=== PATIENT | female | born 1940 | race Caucasian/White ===

== ENCOUNTER 2016-12-06 14:17 | Emergency (ER) | payer MEDICARE, OTHER ==
[~2016-12-06] VITALS: Ht 162.6 cm; Wt 63.2 kg
[2016-12-06 14:22] VITALS: BP 159/89; PULSE 89; RESP 20; O2SAT 97
[2016-12-06 14:25] VITALS: BP 178/68; PULSE 83; RESP 13; O2SAT 99
[2016-12-06 14:46] LABS: BASOPHILS % (AUTO) 0.2 % (0-3); EOSINOPHILS % (AUTO) 2.8 % (0-5); MONOCYTES % (AUTO) 9.6 % (4-12); Mean Corpuscular Hemoglobin 31.6 pg (27.0-35.0); Mean Corpuscular Volume 93.1 fL (81-100); NEUTROPHILS % (AUTO) 52.2 % (40-74); Platelet Count 244 bil/L (150-400)
--- NOTE | 2016-12-06 14:48 | ED.REPORT ---
HPI-Chest Pain 40 and Over Date of Service Dec 06, 2016 ED Provider: Wilian Camacho MD This is a 76 year old female with a history of hypothyroidism, hyperlipidemia, asthma, migraines, and hiatal hernia presenting to the ED complaining of chest pressure that began 3 days ago. Described as chest pressure across the chest that is exacerbated by deep inspiration which causes radiation to back. Reports a, "dull, heavy ache." Associated with no SOB. Denies LE swelling, fever, chills, nausea, vomiting, diarrhea, abdominal pain, constipation, dizziness, lightheadedness, nausea, or diaphoresis. Denies prolonged periods of inactivity recently or recent surgeries. Pt adds that she had US extremity 1 week ago for ankle swelling which was negative. Pain worse with bending and twisting. Nursing Notes Stated Complaint: OUT OF BREATH, CHEST PRESSURE Chief Complaint: Chest Pain Nursing Notes Reviewed: Yes Allergies: Coded Allergies: No Known Allergies (Verified Allergy, Unknown, 11/03/15) General Time Seen by MD: 14:37 Chief Complaint Chest pressure Hx Obtained From: Patient Arrived By: Walk-in Sudden in Onset?: Yes Onset Occurred: 3 days ago Symptom Duration: Since onset Severity: Current: Mild Pertinent Negative: Pt denies other symptoms Recent Healthcare: No recent doctor visit, No recent hospitalization Similar Sx Previous: No Past Medical History Past Medical History 1. Hiatal Hernia 2. Asthma- uses Albuterol 3. Hypothyroidism 4. Hyperlipidemia 5. Migraines 6. RBBB Past Surgical History Reports: Tonsillectomy Family History noncontributory Smoking History Never Smoker Social History Alcohol Use: Denies alcohol use Drug Use: Denies drug use Ambulatory Status Independent Review of Systems Constitutional: Denies: Chills, Fever Complete sys rev & neg: except as marked. Physical Exam Initial Vital Signs Vital Signs (First) Date Time Temp Pulse Resp B/P Pulse Ox O2 Delivery O2 Flow Rate FiO2 12/06/16 14:22 36.2 89 20 159/89 97 Room Air Initial VS: Reviewed Head / Eyes: Atraumatic, Normocephalic, PERRL ENT: Mucous membranes moist, Conjunctiva normal, No scleral icterus Neck: Supple, Non-tender, Full range of motion Extremities: Vascular intact, Neuro intact, No swelling, No tenderness Skin: Warm, Dry, No cyanosis Neurologic: Alert, Oriented, Nonfocal Psychiatric: Mood/affect normal, Behavior normal, Normal thought content General/Constitutional: Awake, Alert Respiratory / Chest: Breath sounds NL, Breath sounds = bilat, No respiratory distress, No rales, No rhonchi, No wheezing, No stridor, No chest tenderness Mild chest wall tenderness Cardiovascular: Regular rhythm, Heart sounds NL, No gallop, No murmurs, No rubs , Peripheral circulation NL Abdomen: Soft, Non-tender, McBurney's non-tender, No guarding, No rebound, BS normoactive, No distention, No hernia, No palpable mass Interpretation & Diagnostics Lab Results Interpretation Result Diagram: 12/06/16 1435 12/06/16 1435 Test 12/06/16 14:35 White Blood Count 9.2th/mm3 (3.8-10.1) Red Blood Count 4.65mil/mm3 (3.90-5.20) Hemoglobin 14.7g/dL (12.0-15.6) Hematocrit 43.3% (35.0-46.0) Mean Corpuscular Volume 93.1fL (81-100) Mean Corpuscular Hemoglobin 31.6pg (27.0-35.0) Mean Corpuscular Hemoglobin Concent 33.9% (32.0-37.0) Red Cell Distribution Width 13.3% (12.3-15.4) Platelet Count 244bil/L (150-400) Neutrophils (%) (Auto) 52.2% (40-74) Lymphocytes (%) (Auto) 34.9% (14-46) Monocytes (%) (Auto) 9.6% (4-12) Eosinophils (%) (Auto) 2.8% (0-5) Basophils (%) (Auto) 0.2% (0-3) Sodium Level 140mEq/L (134-144) Potassium Level 4.0mEq/L (3.5-5.2) Chloride Level 100mEq/L (97-108) Carbon Dioxide Level 24mmol/L (18-29) Blood Urea Nitrogen 14mg/dL (8-27) Creatinine 0.64mg/dL (0.57-1.00) Estimat Glomerular Filtration Rate 129mL/min (>59) Glucose Level 106mg/dL (60-99) Calcium Level 9.6mg/dL (8.5-10.1) Magnesium Level 2.0mg/dL (1.6-2.6) Total Bilirubin 0.6mg/dL (0.0-1.2) Aspartate Amino Transf (AST/SGOT) 22U/L (0-50) Alanine Aminotransferase (ALT/SGPT) 28U/L (0-32) Alkaline Phosphatase 80U/L (25-165) Troponin T < 0.010ug/L (0.0-0.011) Total Protein 7.6g/dL (6.4-8.4) Albumin 4.6g/dL (3.4-5.0) Hold Jett Top Tube Received (Received) ECG Interpretation ECG Interpretation: NSR at a rate of 79 at [address] segment elevation No t-wave abnormalities Time: 14:51 X-Ray Chest Interpretation Chest Xray Interpretation: IMPRESSION: No acute cardiopulmonary disease process. Dictated by: Geno Quinones MD, PhD on 12/06/2016 at 15:01 Approved by: Geno Quinones MD, PhD on 12/06/2016 at 15:02 Re-Eval/Medical Decision Med Decision/Clinical Course This is a 76 year old female with a history of hypothyroidism, hyperlipidemia, asthma, migraines, and hiatal hernia presenting to the ED complaining of chest pressure that began 3 days ago. Described as chest pressure across the chest that is exacerbated by deep inspiration which causes radiation to back. Reports a, "dull, heavy ache." Associated with no SOB. Denies LE swelling, fever, chills, nausea, vomiting, diarrhea, abdominal pain, constipation, dizziness, lightheadedness, nausea, or diaphoresis. Denies prolonged periods of inactivity recently or recent surgeries. Pt adds that she had US extremity 1 week ago for ankle swelling which was negative. Pain worse with bending and twisting. Upon arrival patient is afebrile with stable vital signs and examination as above. She has oxygen saturation 100% on room air and is without tachypnea. CXR: Obtained, reviewed and interpreted by myself shows no evidence of acute infiltrates, effusions or pneumothorax. Cardiac and mediastinal silhouette normal. No bony or soft tissue abnormalities. EKG was obtained and reviewed by myself as documented above. CBC CMP unremarkable troponin negative Overall presentation most consistent with musculoskeletal etiology. Initial screening troponin and EKG are reassuring against acute coronary syndrome. Moreover, the nature of her presentation is not classically suggestive of acute coronary syndrome. I did consider pulmonary embolism however on her examination today there is no lateralizing Swelling or tenderness suggestive of DVT and she is previously ruled out for DVT on duplex ultrasonography. She is without tachypnea, tachycardia or any major pulmonary embolus risk factors. I do not feel that workup for pulmonary embolism is clinically indicated at this time. Chest x-ray demonstrates no pneumonia or pneumothorax. Discussed findings and workup thus far. Patient feels reassured. Explained that we cannot definitively rule out acute coronary syndrome without admission and serial troponins however patient does not desire further workup at this time and wishes to be discharged home. The patient is making an informed decision. She was discharged home in stable condition. Follow-up and return precautions were reviewed in detail and she will follow up with her primary care physician in the coming week. Counseled Regarding: Diagnosis, Lab results, Need for follow-up, When/why to return to ED Discharge & Departure Primary Impression: Chest pressure Additional Impression: Musculoskeletal chest pain Disposition: Home Discharge Condition All VS Reviewed: Yes Condition: Stable Patient Instructions: Chest Pain (ED) Additional Instructions: Thank you for seeking care at emergency room. It is difficult for us to make definitive diagnoses in the ED but we believe that you are experiencing non-cardiac chest pressure Our primary goal today in the ED was to evaluate you for any life-threatening conditions. Your evaluation was reassuring. You should follow-up with your primary doctor in the next week. You should return to the ED immediately if you develop fevers, vomiting, cough, shortness of breath, chest pain, lightheadedness, weakness or any other concerning signs or symptoms. Thank you for letting us partake in your care today. Referrals: Christiane Abdul MD (PCP) Scribe Attestation Portions of this note were transcribed by Yajaira Dunham. I, Dr. Camacho personally performed the history, physical exam and medical decision-making; I reviewed and confirmed the accuracy of the information in the transcribed note. Signed by: vy Dowd. 12/06/2016, 16:30. Wilian Camacho MD Dec 06, 2016 14:48 YAJAIRA DUNHAM Dec 06, 2016 14:51
--- NOTE | 2016-12-06 15:04 | DRSVH ---
PROCEDURE: X-RAY CHEST ONE VIEW, PORTABLE ([id number]) INDICATIONS: CHEST PAIN TECHNIQUE: One view of the chest was acquired. COMPARISON: [facility], , CHEST 1VW (PORTABLE), 12/10/2006, 5:43. FINDINGS: Surgical changes and devices: None. Lungs and pleura: No pleural effusions or pneumothorax. Lungs are clear. Mediastinum: Mediastinal contours appear normal. Heart size is normal. Bones and chest wall: No suspicious bony lesions. Overlying soft tissues appear unremarkable. IMPRESSION: No acute cardiopulmonary disease process. Dictated by: Geno Quinones MD, PhD on 12/06/2016 at 15:01 Approved by: Geno Quinones MD, PhD on 12/06/2016 at 15:02
[2016-12-06 15:10] LABS: TROPONIN T < 0.010 ug/L (0.0-0.011)
[2016-12-06 15:59] VITALS: BP 138/65; PULSE 75; RESP 16; O2SAT 97
== END 2016-12-06 15:59 | disposition home or self-care (01) ==
LOC: SED 14:17
DX: R07.89 Other chest pain (principal); J45.909 Unspecified asthma, uncomplicated; E03.9 Hypothyroidism, unspecified; E78.5 Hyperlipidemia, unspecified